=== PATIENT | female | born 1995 | race Two or more races ===

== ENCOUNTER 2017-06-29 12:38 | Emergency (ER) | payer SELFPAY ==
[2017-06-29] MEDS: LIDOCAINE WITH 8.4% SOD BICARB 3 ML DISP.SYRIN. INJ ×4 (13:25→14:31)
[2017-06-29] MEDS: DIPHTH,PERTUSS(ACELL),TET TOX 0.5 ML DISP.SYRIN. VAX IM ×2 (13:26)
== END 2017-06-29 14:48 | disposition home or self-care (01) ==
LOC: ER 12:38
DX: S81.811A Laceration without foreign body, right lower leg, initial encounter (principal); W25.XXXA Contact with sharp glass, initial encounter; Y93.E9 Activity, other interior property and clothing maintenance; Y92.89 Other specified places as the place of occurrence of the external cause; Y99.8 Other external cause status
CPT/HCPCS: 12002; 73564; 90471; 90715; 99284-25